=== PATIENT | male | born 1990 | race Caucasian/White ===

== ENCOUNTER 2021-08-03 09:00 | Outpatient (REF) | payer OTHER, SELFPAY ==
--- NOTE | ~2021-08-03 | XR_ITS ---
EXAMINATION: XR SACROILIAC JOINTS CLINICAL INFORMATION: Dorsalgia COMPARISON: None TECHNIQUE: 3 views of the sacroiliac joints FINDINGS: Sacroiliac joints are normal in appearance and symmetric. There is neither fracture nor dislocation nor appreciable degenerative changes of either hip. Visualized portions of the lower lumbar spine are unremarkable. XR/XR sacroiliac joint min 3V IMPRESSION: Normal sacroiliac joints.
[2021-08-03 10:30] LABS: MANUAL DIFF FLAG NO
[2021-08-03 11:27] LABS: Basophils Percent Auto 0.8 % (0-2); Eosinophils Absolute Auto 0.2 X10*3/uL (0.0-0.4); Eosinophils Percent Auto 3.9 % (0-4); Hematocrit 45.1 % (42.0-52.0); Hemoglobin 14.7 g/dl (14.0-18.0); Imm Gran Abs Auto 0.01 X10*3/uL (0.00-0.03); Imm Gran Pct Auto 0.2 % (0.0-0.4); Lymphocytes Absolute Auto 1.8 X10*3/uL (1.2-4.9); Lymphocytes Percent Auto 35.8 % (20-40); Mean Corpuscular HGB Conc 32.6 g/dl (31.0-36.0); Mean Corpuscular Hemoglobin 29.9 pg (27.0-33.0); Mean Corpuscular Volume 91.7 fL (80.0-98.0); Mean Platelet Volume 10.3 fL (9.4-12.4); Monocytes Absolute Auto 0.6 X10*3/uL (0.1-1.2); Monocytes Percent Auto 10.7 % (2-11); Neutrophils Absolute Auto 2.5 x10*3/uL (2.0-8.3); Neutrophils Percent Auto 48.6 % (45-73); Platelet Count 303 X10*3/uL (160-400); Red Blood Count 4.92 X10*6/uL (4.60-5.80); Red Cell Distribution Width 12.7 % (11.0-16.0); White Blood Count 5.1 X10*3/uL (4.8-10.8)
[2021-08-03 12:06] LABS: Alanine Aminotransferase 23 U/L (0-40); Albumin Level 4.9 g/dL (3.5-5.0); Alkaline Phosphatase 56 U/L (39-117); Anion Gap 10 (12-20); Aspartate Amino Transferase 22 U/L (5-37); Bilirubin Total 0.5 mg/dL (0.0-1.0); Blood Urea Nitrogen 6 mg/dL (9-16); C Reactive Protein 0.02 mg/dL (< or = 0.50); Calcium 10.3 mg/dL (8.4-10.2); Carbon Dioxide 31 mmol/L (22-29); Chloride 104 mmol/L (96-108); Estimated Glomerular Filt Rate > 60; Glucose Random 92 mg/dL (60-115); Potassium 4.8 mmol/L (3.3-5.1); Sodium 140 mmol/L (135-145); Total Protein 7.5 g/dL (6.5-8.0)
[2021-08-03 12:20] LABS: Erythrocyte Sedimentation Rate 1 MM/HR (0-15)
== END 2021-08-03 09:01 | disposition home or self-care (01) ==
LOC: HO.LAB 09:00
PROVIDERS: PCP Internal Medicine Endocrinology, Diabetes & Metabolism; Visit Provider Internal Medicine Rheumatology
DX: M25.50 Pain in unspecified joint (principal); M25.561 Pain in right knee; M25.562 Pain in left knee; M54.9 Dorsalgia, unspecified; Z15.89 Genetic susceptibility to other disease; Z79.1 Long term (current) use of non-steroidal anti-inflammatories (NSAID)
CPT/HCPCS: 36415; 72202; 80053; 85025; 85652; 86140; 99202

== ENCOUNTER → 2021-09-04 10:27 | Outpatient (BNVA) | payer OTHER, SELFPAY | PROVIDERS: PCP Podiatrist; Visit Provider Internal Medicine Rheumatology | DX: M54.9 Dorsalgia, unspecified (principal); M25.561 Pain in right knee; M25.562 Pain in left knee; M25.50 Pain in unspecified joint; M79.641 Pain in right hand; M79.642 Pain in left hand; Z15.89 Genetic susceptibility to other disease; Z79.1 Long term (current) use of non-steroidal anti-inflammatories (NSAID) | CPT/HCPCS: 99212 ==

== ENCOUNTER 2021-09-15 16:32 | Outpatient (REF) | payer OTHER, SELFPAY ==
--- NOTE | ~2021-09-15 | MR_ITS ---
EXAMINATION: MR PELVIS WITHOUT CONTRAST CLINICAL INFORMATION: Genetic susceptibility to other disease. Pain. COMPARISON: Previous sacroiliac joints x-ray July 2020 TECHNIQUE: Sagittal axial and coronal sequences through the pelvis without contrast FINDINGS: The sacroiliac joints are normal-appearing. No evidence of sacroiliitis is seen. Bone alignment is normal. No fracture or dislocation or bone lesion is seen. Bone marrow signal is seen. The hip joints are normal. Soft tissues are normal. MR/MR pelvis wo con IMPRESSION: Unremarkable examination.
== END 2021-09-15 16:33 | disposition home or self-care (01) ==
LOC: HO.MRI 16:32
PROVIDERS: Visit Provider Internal Medicine Rheumatology
DX: M54.9 Dorsalgia, unspecified (principal); M25.50 Pain in unspecified joint; Z15.89 Genetic susceptibility to other disease
CPT/HCPCS: 72195

== ENCOUNTER → 2021-10-10 08:53 | Outpatient (BNVA) | payer OTHER, SELFPAY | PROVIDERS: PCP Podiatrist; Visit Provider Internal Medicine Rheumatology | DX: M25.561 Pain in right knee (principal); M25.562 Pain in left knee; Z15.89 Genetic susceptibility to other disease; Z79.1 Long term (current) use of non-steroidal anti-inflammatories (NSAID) | CPT/HCPCS: 99212 ==

== ENCOUNTER 2023-07-09 09:23 | Outpatient (REF) | payer OTHER, SELFPAY ==
[2023-07-09 11:02] LABS: MANUAL DIFF FLAG NO
[2023-07-09 12:35] LABS: Basophils Absolute Auto 0.1 X10*3/uL (0.0-0.2); Basophils Percent Auto 0.7 % (0-2); Eosinophils Absolute Auto 0.1 X10*3/uL (0.0-0.4); Eosinophils Percent Auto 1.8 % (0-4); Hemoglobin 13.9 g/dl (14.0-18.0); Imm Gran Abs Auto 0.02 X10*3/uL (0.00-0.03); Imm Gran Pct Auto 0.3 % (0.0-0.4); Lymphocytes Absolute Auto 1.9 X10*3/uL (1.2-4.9); Mean Corpuscular HGB Conc 32.3 g/dl (31.0-36.0); Mean Corpuscular Hemoglobin 29.9 pg (27.0-33.0); Mean Corpuscular Volume 92.5 fL (80.0-98.0); Mean Platelet Volume 9.7 fL (9.4-12.4); Monocytes Absolute Auto 0.8 X10*3/uL (0.1-1.2); Monocytes Percent Auto 11.3 % (2-11); Neutrophils Absolute Auto 3.9 x10*3/uL (2.0-8.3); Neutrophils Percent Auto 57.9 % (45-73); Platelet Count 288 X10*3/uL (160-400); Red Blood Count 4.65 X10*6/uL (4.60-5.80); Red Cell Distribution Width 12.9 % (11.0-16.0); White Blood Count 6.8 X10*3/uL (4.8-10.8)
[2023-07-09 13:16] LABS: Alanine Aminotransferase 20 U/L (0-40); Albumin Level 4.5 g/dL (3.5-5.0); Alkaline Phosphatase 53 U/L (39-117); Anion Gap 12 (12-20); Aspartate Amino Transferase 15 U/L (5-37); Bilirubin Total 0.2 mg/dL (0.0-1.0); Blood Urea Nitrogen 9 mg/dL (9-16); Calcium 9.4 mg/dL (8.4-10.2); Carbon Dioxide 29 mmol/L (22-29); Chloride 104 mmol/L (96-108); Estimated Glomerular Filt Rate > 60; Glucose Random 90 mg/dL (60-115); Potassium 4.2 mmol/L (3.3-5.1); Sodium 141 mmol/L (135-145); Thyroid Stimulating Hormone 0.66 uIU/mL (0.32-4.0); Total Protein 7.2 g/dL (6.5-8.0)
== END 2023-07-09 09:24 | disposition home or self-care (01) ==
LOC: HO.LAB 09:23
PROVIDERS: PCP Podiatrist; Visit Provider Physician Assistant
DX: K59.09 Other constipation (principal); R11.0 Nausea; Z80.0 Family history of malignant neoplasm of digestive organs; Z80.7 Family history of other malignant neoplasms of lymphoid, hematopoietic and related tissues
CPT/HCPCS: 36415; 80053; 84443; 85025; 99202

== ENCOUNTER 2023-07-09 09:23 | Outpatient (AMB) | payer OTHER, SELFPAY ==
--- NOTE | 2023-07-09 09:26 | A.OFFVIS_ITS ---
Intake Vital Signs 07/09/23 09:28 Height 5 ft 9 in Weight 158 lb 11.725 oz BMI 23.4 BP 127/73 Blood Pressure Location Lt brachial Position Sitting Pulse 77 Intake Visit Reasons: Constipation Intake Note: Kurtis presents in the office as a new patient for constipation. CC: Constipation - discomfort and bloating in his abdomen. he will have a BM every 3 days. Market Risk Specialist Required: No Allergies No Known Allergies Allergy (Verified 07/09/23 09:28) Medication List - Last Reconciled 07/09/23 by Yolanda Vieira PA-C bupropion HCl 300 mg PO QAM dextroamphetamine-amphetamine 20 mg (Adderall) 20 mg PO BID HPI HPI Comments History of Present Illness Details A 32 y/o male referred with chronic constipation- on and off x 2 years-taking adderall 20 mg bid Was seen in urology- for noc urinating-he feels like he needs to have bm WHENEVER HE urinations He had a CT, cystoscopy- as well as PT for slow flow-had taken meds for enlarged prostate- that were dc'd. BM Q 3-4 days-he has tried stool softeners/ laxative- not much changed- intermittent rectal pain feels like spasms-nausea intermittently He wants a colonoscopy- his father just diagnosed with colon cancer- treated for lymphoma-also maternal grandmother colon cancer-he is very concerned given his symptoms, certainly understandable. 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 (nsaid) HCA B27 positive Polyarthralgia Back pain Surgical History S/P LASIK surgery Family History (Updated 07/09/23 @ 09:56 by Yolanda Vieira PA-C) Father Colon cancer Lymphoma Maternal Grandfather Colon cancer Social History Household Members Other:: lives alone Housing: House Are you a primary career development manager to a significant other at home: No Do you presently have visiting nurse or other home services: No 75 years or older and lives alone: No Alcohol intake: current Alcohol intake frequency: a few times a month Alcohol type: wine Patient Tobacco Use Status: Never used Tobacco e-Cigarette/Vaping Use: Never Used Substance Use Type: Marijuana service: Yes Current occupational status: employed Current occupation: IT Review of Systems Const All systems reviewed & are unremarkable except as noted in HPI and below Card Denies chest pain and Denies dyspnea Resp Denies dyspnea GI Denies abdominal pain, Reports change in stool character, Reports constipation, Reports nausea and Denies vomiting Reports urinary frequency Physical Exam Vital Signs: Last Vital Signs Pulse 77 07/09/23 09:28 BP 127/73 07/09/23 09:28 BMI result Body Mass Index 23.4 Const General: cooperative, healthy appearing, comfortable, no acute distress, alert and well groomed Orientation/consciousness: patient oriented x3 Limitations: no limitations Eyes Sclerae: sclerae normal Resp Effort & Inspection: normal respiratory effort and able to speak in complete sentences Auscultation: clear to auscultation bilaterally, no rales, no rhonchi and no wheezes Cardio Rate: regular rate Rhythm: regular rhythm Heart sounds: S1 normal heart sound present and S2 normal heart sound present GI Palpation (GI): Soft to palpation Auscultation: normal bowel sounds Skin Other: Multiply tattooed General skin exam: no rashes or lesions noted Neuro General: patient oriented x3 Extrem General: Yes full ROM Psych Appearance: grossly normal and well kempt Mental Status: mental status grossly normal Speech and movement: Normal speech and movement present Affect: normal affect Attitude: cooperative Thought process: Normal thought process present Thought content: Normal thought content present Insight: Good insight present (Psych) Judgement: Good judgement present (Psych) Results Reviewed Results Reviewed: MR/MR pelvis wo con IMPRESSION: Unremarkable examination. CT- 05/2023- No findings- Assessment & Plan Assessment & Plan (1) Chronic constipation: Code(s): K59.09 - Other constipation Plan: Consistent bowel Colonoscopy (2) Nausea: Comment: Difficult to assess Code(s): R11.0 - Nausea Plan: EGD (3) Family history of colon cancer in father: Code(s): Z80.0 - Family history of malignant neoplasm of digestive organs (4) Family history of lymphoma: Code(s): Z80.7 - Family history of other malignant neoplasms of lymphoid, hematopoietic and related tissues Plan: My risk genetic testing- If authorized by insurance will be progress- If insurance does not approve they called the patient and offer them-to process sample for a $250 fee Plan EGD/ colon- POON MG prep miralax x 1 week before Orders: Orders EGD/[place] Combo - GI Use Only Today K59.09 - Other constipation, R11.0 - Nausea, Z80.0 - Family history of malignant neoplasm of digestive organs, Z80.7 - Family history of other malignant neoplasms of lymphoid, hematopoietic and related tissues Complete Blood Count Auto Diff Today K59.09 - Other constipation, Z80.0 - Family history of malignant neoplasm of digestive organs, Z80.7 - Family history of other malignant neoplasms of lymphoid, hematopoietic and related tissues Comprehensive Met. Panel Today R11.0 - Nausea, Z80.0 - Family history of malignant neoplasm of digestive organs, Z80.7 - Family history of other malignant neoplasms of lymphoid, hematopoietic and related tissues Thyroid Stimulating Hormone Today R11.0 - Nausea, Z80.0 - Family history of malignant neoplasm of digestive organs, Z80.7 - Family history of other malignant neoplasms of lymphoid, hematopoietic and related tissues Medications: New polyethylene glycol 3350 (Miralax) Take as directed by mouth the day before your procedure. 238 grams PO ONCE 1 day PRN 238 grams 0RF laxative effect hydrocortisone acetate (Anusol-HC) 25 mg [place] BEDTIME PRN 24 ea 0RF hemorrhoids sennosides (senna) 8.6 mg PO DAILY 30 days 30 caps 3RF constipation docusate sodium (Colace) 200 mg (2 x 100 mg) PO BEDTIME 60 caps 5RF bisacodyl (Dulcolax (bisacodyl)) Day before procedure @ 12 noon Take 4 tablets by mouth followed by large glass of water 20 mg (4 x 5 mg) PO ONCE 1 day PRN 4 tabs 0RF colonoscopy prep Z12.11 - Encounter for screening for malignant neoplasm of colon polyethylene glycol 3350 (Miralax) 17 grams PO DAILY 30 days 510 grams 6RF bisacodyl (Dulcolax (bisacodyl)) 10 mg [place] DAILY PRN 20 ea 0RF constipation Patient Instructions: Very pleasant 32-year-old male family history of colon cancer, lymphoma presents with chronic constipation, nausea- Expresses anxiety given family history certainly understandable. He is done my risk genetic test in which we will submit. We discussed insurance constraints, will address that she would be any issue. He is agreeable with the plan He has made every effort at OT that have been unsuccessful He will begin bowel regimen Colace 200 mg as well as MiraLax q.h.s. senna daily He may use dulcolax suppositories as need He will give trial to Anusol suppositories-rectal pain Were scheduled him for EGD as well as colonoscopy- Discussed procedures, rare risks, need for escorted due to anesthesia Encouraged to call with questions or concerns Appreciate the opportunity assist care this patient Coding Level of Care Code New Pt Level 4 (05631) Diagnoses Chronic constipation K59.09 Nausea R11.0 Family history of colon cancer in father Z80.0 Family history of lymphoma Z80.7 Time Spent (min) 45
[2023-07-09 09:28] VITALS: BP 127/73; PULSE 77; BMI 23.4
== END 2023-07-09 10:51 | disposition home or self-care (01) ==
PROVIDERS: PCP Podiatrist; Referring Provider Podiatrist; Visit Provider Physician Assistant
DX: K59.09 Other constipation (principal); R11.0 Nausea; Z80.0 Family history of malignant neoplasm of digestive organs; Z80.7 Family history of other malignant neoplasms of lymphoid, hematopoietic and related tissues
CPT/HCPCS: 99204

== ENCOUNTER 2023-10-30 10:12 | Day surgery (SDC) | payer OTHER, SELFPAY ==
--- NOTE | 2023-10-29 11:54 | HO.ANESPROP2 ---
HPI - Anesthesia Eval Consult details Narrative: 33yo M for Upper Endoscopy and Colonoscopy [facility] Active Problems Active Problems: All Active Problems Family history of lymphoma (Acute) Family history of colon cancer in father (Acute) Nausea (Acute) Chronic constipation (Acute) Bilateral hand pain (Acute) HLA B27 (HLA B27 positive) (Acute) Knee pain, bilateral (Acute) [facility] (current) use of non-steroidal anti-inflammatories (nsaid) (Acute) Polyarthralgia (Acute) Back pain (Acute) Past Medical History Medical History Ankylosing spondylitis of site in spine Bilateral hand pain HLA B27 (HLA B27 positive) Knee pain, 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 (nsaid) HCA B27 positive Polyarthralgia Back pain Family History Family History Father Colon cancer Lymphoma Maternal Grandfather Colon cancer Surgical History Surgical History H/O circumcision S/P LASIK surgery Social History Social History Household Members Other:: lives alone Housing: House Are you a primary manager wound care to a significant other at home: No Do you presently have visiting nurse or other home services: No 75 years or older and lives alone: No Alcohol intake: current Alcohol intake frequency: a few times a month Alcohol type: wine Patient Tobacco Use Status: Never used Tobacco e-Cigarette/Vaping Use: Never Used Substance Use Type: Marijuana service: Yes Current occupational status: employed Current occupation: IT Meds Allergies Allergy/AdvReac Type Severity Reaction Status Date / Time No Known Allergies Allergy Verified 10/30/23 12:47 Home Medications ?Medication ?Instructions ?Recorded ?Confirmed ?Last Taken ?Type bupropion HCl 300 mg 24 hr tablet, 300 mg PO QAM 07/09/23 07/09/23 Unknown History extended release dextroamphetamine-amphetamine 20 20 mg PO BID 07/09/23 07/09/23 10/30/23 07:00 History mg tablet (Adderall) Exam Pertinent Lab Results Pertinent Lab Results: Laboratory Tests 07/09/23 11:01 WBC 6.8 Hgb 13.9 L Hct 43.0 Plt Count 288 Sodium 141 Potassium 4.2 Chloride 104 Carbon Dioxide 29 BUN 9 Creatinine 0.91 Assessment and Plan Assessment Anesthesia Assessment: Chart Reviewed
[2023-10-30 12:49] VITALS: BMI 21.1
--- NOTE | 2023-10-30 12:53 | P.HPSUR_ITS ---
Pre-Procedural Eval Section A - 24 Hr Update-Section A only Date of Service: 10/30/23 Section B - Complete if H&P > 30 days Chief Complaint: Family history of other malignant neoplasms of lym Relevant Family History (Specify if Yes): Yes Relevant Social History: Other (specify) (THC use) Present Medications: see Short Stay Collaborative assessment Medical History: Significant History (Bilateral hand pain HLA B27 (HLA B27 positive) Knee pain, bilateral detention (current) use of non-steroidal anti- inflammatories (nsaid) HCA B27 positive Polyarthralgia Back pain) History of Previous Operations: Relevant previous surgery/procedure and date(s) (S/P LASIK surgery) Allergies: Allergies Allergy/AdvReac Type Severity Reaction Status Date / Time No Known Allergies Allergy Verified 10/30/23 12:47 Review of Systems Sugical H&P ROS: Negative: Constitution, Cardiovascular, Respiratory, Neurological, Psychiatric, Hem-Onc, Allergic/Immunologic, Gastrointestinal, Genitourinary, Musculoskeletal, Integumentary, Endocrine and Eyes/Ears/Nose/Throat Exam Surgical H&P Exam: Normal: HEENT, Normal: Heart, Normal: Lungs, Normal: Extremities, Normal: Abdomen, Normal: Skin and Normal: Neurological Plan Diagnosis/Plan: Unchanged I have reviewed the history and physical and performed a pertinent physical examination on my patient. No changes have occurred unless specified. Time Spent With Patient Time: Total time managing care of this patient today ____ minutes.
[2023-10-30 13:07] VITALS: BP 112/70; PULSE 56; RESP 15; TEMP 36.6; O2SAT 100
[2023-10-30] MEDS: Lactated Ringers 1,000 ML 100 ML IVCONT (13:12)
--- NOTE | 2023-10-30 13:15 | HO.ANESPROP2 ---
[facility] Active Problems Active Problems: All Active Problems Family history of lymphoma (Acute) Family history of colon cancer in father (Acute) Nausea (Acute) Chronic constipation (Acute) Bilateral hand pain (Acute) HLA B27 (HLA B27 positive) (Acute) Knee pain, bilateral (Acute) shelter (current) use of non-steroidal anti-inflammatories (nsaid) (Acute) Polyarthralgia (Acute) Back pain (Acute) Past Medical History Medical History Ankylosing spondylitis of site in spine Bilateral hand pain HLA B27 (HLA B27 positive) Knee pain, bilateral shelter (current) use of non-steroidal anti-inflammatories (nsaid) HCA B27 positive Polyarthralgia Back pain Functional capacity: independent ambulation Family History Family History Father Colon cancer Lymphoma Maternal Grandfather Colon cancer Family history of problems with anesthesia: No Surgical History Surgical History H/O circumcision S/P LASIK surgery Social History Social History Household Members Other:: lives alone Housing: House Are you a primary pediatric critical care nurse to a significant other at home: No Do you presently have visiting nurse or other home services: No Alcohol intake: current Alcohol intake frequency: a few times a month Alcohol type: wine Patient Tobacco Use Status: Never used Tobacco e-Cigarette/Vaping Use: Never Used Use of substances other than those prescribed or required for medical reasons: Yes Substance Use Type: Marijuana Substance Use Type Other:: vaped Substance Use Frequency: Daily Are you DNR?: No Advance Directives: No Advance Directives Information Provided: Yes service: Yes Current occupational status: employed Current occupation: IT Meds Allergies Allergy/AdvReac Type Severity Reaction Status Date / Time No Known Allergies Allergy Verified 10/30/23 12:47 Active Medications: Current Medications Lactated Ringer's (Lr) 1,000 mls @ 100 mls/hr IVCONT .Q10H LISA Last Admin: 10/30/23 13:12 Dose: 100 mls/hr Home Medications ?Medication ?Instructions ?Recorded ?Confirmed ?Last Taken ?Type bupropion HCl 300 mg 24 hr tablet, 300 mg PO QAM 07/09/23 07/09/23 Unknown History extended release dextroamphetamine-amphetamine 20 20 mg PO BID 07/09/23 07/09/23 10/30/23 07:00 History mg tablet (Adderall) Exam Height,Weight and Vital Signs: Height 5 ft 9 in Weight 64.864 kg Last Vital Signs Temp 97.8 F 10/30/23 13:07 Pulse 56 10/30/23 13:07 Resp 15 10/30/23 13:07 BP 112/70 10/30/23 13:07 Pulse Ox 100 10/30/23 13:07 O2 Del Method Room Air 10/30/23 13:07 Airway Mallampati Class: II TM Dist: >3cm Neck ROM: Full Heart: RRR Lungs: CTA Assessment and Plan Assessment Anesthesia Assessment: Anesthesia Plan Discussed Final Anesthetic Review Family History of Problems with Anesthesia: No NPO: Yes ASA Class: II and III Final Preanesthetic Review: Meds/Allgs Chart Reviewed, Consent Obtained/Reviewed and Anes Risks/Benef Reviewed Patient Risk: Low Procedure Risk: Low Anesthetic Plan Anesthetic Plan: MAC: Disposition: Standard PACU
--- NOTE | 2023-10-30 13:34 | P.OPN-COLO_ITS ---
Colonoscopy Operative Note Operative Note Date of Service: 10/30/23 Narrative: Operative Information Procedure Description: EGD, Colonoscopy Indication: FH of colon cancer, screening Anesthesia: MAC FLEXIBLE TRANSORAL UPPER GASTROINTESTINAL ENDOSCOPY AND COLONOSCOPY PROCEDURE NOTE UPPER ENDOSCOPY Consent: Indications for the procedure and potential complications of bleeding, perforation, reaction to medications and missed diagnosis were discussed with the patient and informed consent was obtained. Instrument: Olympus GIF H 190 J mid size upper endoscope Monitoring: Vital signs and clinical assessment, continuous EKG monitoring, Pulse oximetry, Carbon Dioxide monitoring and blood pressure monitoring were done throughout the procedure. Procedure: The patient was placed in the left lateral decubitis position and pre-procedure medications were administered and a bite block was placed. The endoscope was inserted into the mouth and advanced under direct vision to the third part of duodenum. A careful inspection was made as the upper endoscope was withdrawn including a retroflexed examination of the proximal stomach; Findings and interventions are described below. Findings: Larynx:normal Esophagus: GE junction at 42 cm, diaphragm hiatus at 42 cm, normal mucosa Stomach: Normal mucosa. Grade 2 flap valve on retroflexed examination of the cardia. Duodenum: Normal bulb and descending duodenum, ERCP scope used to look at papilla and was normal Intervention: none COLONOSCOPY Instrument: Olympus variable stiffness pediatric scope 190L Colonoscopy Monitoring: Vital signs and clinical assessment, continuous EKG monitoring, Pulse oximetry, Carbon Dioxide monitoring and blood pressure monitoring were done throughout the procedure. Colon withdrawal time was 7 minutes. Procedure: The patient was placed in the left lateral decubitis position and pre-procedure medications were administered. After a digital rectal examination of the ano-rectum, the video colonoscope was inserted into the rectum and advanced through the colon to the cecum/TI. The colonoscope was slowly withdrawn in a retrograde panoramic fashion and the colon mucosa was carefully examined including a retroflexed view of the rectum. Findings and interventions are described below. Procedure Difficulty: easy Findings: Terminal Ileum-normal Cecum:normal Ascending Colon: normal Transverse Colon -normal Descending Colon:normal Sigmoid Colon: normal Rectum: Retroflexion with small internal hemorrhoids, grade I Anorectum - normal Colon preparation: [place] Bowel Preparation Scale Right colon; 2 Transverse colon: 3 Left colon; 3 (0 = Unprepared colon segment with mucosa not seen due to solid stool that cannot be cleared. 1 = Portion of mucosa of the colon segment seen, but other areas of the colon segment not well seen due to staining, residual stool and/or opaque liquid. 2 = Minor amount of residual staining, small fragments of stool and/or opaque liquid, but mucosa of colon segment seen well. 3 = Entire mucosa of colon segment seen well with no residual staining, small fragments of stool or opaque liquid) Impression and Post Procedure Diagnosis: Endoscopy Findings: normal Colonoscopy Findings: normal Plan: Await Pathology results Repeat Colonoscopy in 5 years due to FH of CRC or earlier if clinically indicated High fiber diet leaflet avoid straining at stool, epsom salts and sitz bath, anusol supps or cream Above findings were reviewed with the patient and relevant handouts were provided if indicated.
--- NOTE | 2023-10-30 13:35 | P.CONAN_ITS ---
[facility] Active Problems Active Problems: All Active Problems Family history of lymphoma (Acute) Family history of colon cancer in father (Acute) Nausea (Acute) Chronic constipation (Acute) Bilateral hand pain (Acute) HLA B27 (HLA B27 positive) (Acute) Knee pain, bilateral (Acute) longterm (current) use of non-steroidal anti-inflammatories (nsaid) (Acute) Polyarthralgia (Acute) Back pain (Acute) Past Medical History Medical History Ankylosing spondylitis of site in spine Bilateral hand pain HLA B27 (HLA B27 positive) Knee pain, bilateral longterm (current) use of non-steroidal anti-inflammatories (nsaid) HCA B27 positive Polyarthralgia Back pain Functional capacity: independent ambulation Family History Family History Father Colon cancer Lymphoma Maternal Grandfather Colon cancer Family history of problems with anesthesia: No Surgical History Surgical History H/O circumcision S/P LASIK surgery Social History Social History Household Members Other:: lives alone Housing: House Are you a primary ostomy care nurse to a significant other at home: No Do you presently have visiting nurse or other home services: No Alcohol intake: current Alcohol intake frequency: a few times a month Alcohol type: wine Patient Tobacco Use Status: Never used Tobacco e-Cigarette/Vaping Use: Never Used Use of substances other than those prescribed or required for medical reasons: Yes Substance Use Type: Marijuana Substance Use Type Other:: vaped Substance Use Frequency: Daily Are you DNR?: No Advance Directives: No Advance Directives Information Provided: Yes service: Yes Current occupational status: employed Current occupation: IT Meds Allergies Allergy/AdvReac Type Severity Reaction Status Date / Time No Known Allergies Allergy Verified 10/30/23 12:47 Active Medications: Current Medications Lactated Ringer's (Lr) 1,000 mls @ 100 mls/hr IVCONT .Q10H LISA Last Admin: 10/30/23 13:12 Dose: 100 mls/hr Home Medications ?Medication ?Instructions ?Recorded ?Confirmed ?Last Taken ?Type bupropion HCl 300 mg 24 hr tablet, 300 mg PO QAM 07/09/23 07/09/23 Unknown History extended release dextroamphetamine-amphetamine 20 20 mg PO BID 07/09/23 07/09/23 10/30/23 07:00 History mg tablet (Adderall) Exam Height,Weight and Vital Signs: Height 5 ft 9 in Weight 64.864 kg Last Vital Signs Temp 97.8 F 10/30/23 13:07 Pulse 56 10/30/23 13:07 Resp 15 10/30/23 13:07 BP 112/70 10/30/23 13:07 Pulse Ox 100 10/30/23 13:07 O2 Del Method Room Air 10/30/23 13:07 Airway Mallampati Class: II TM Dist: >3cm Neck ROM: Full Heart: RRR Lungs: CTA Assessment and Plan Final Anesthetic Review Family History of Problems with Anesthesia: No NPO: Yes ASA Class: II Final Preanesthetic Review: Meds/Allgs Chart Reviewed, Consent Obtained/Reviewed and Anes Risks/Benef Reviewed Patient Risk: Low Procedure Risk: Low Anesthetic Plan Anesthetic Plan: MAC: Disposition: Standard PACU
[2023-10-30 14:10] VITALS: BP 90/42; PULSE 61; RESP 16; TEMP 36.4; O2SAT 98
--- NOTE | 2023-10-30 14:13 | HO.POSTANES ---
Post Anesthesia Evaluation Post Anesthesia Evaluation Date of Service: 10/30/23 Vital Signs: Vital Signs Temp Pulse Resp BP Pulse Ox O2 Del Method 10/30/23 13:07 97.8 F 56 15 112/70 100 Room Air Anesthesia: Monitored Mental Status: Awake Pain Control: Satisfactory Nausea/Vomiting: None Hydration: Adequate Anesthesia-Related Issues: No Anes. Related Issues
[2023-10-30 14:25] VITALS: BP 109/68; PULSE 63; RESP 16; O2SAT 100
[2023-10-30 14:44] VITALS: TEMP 36.6
== END 2023-10-30 15:22 | disposition home or self-care (01) ==
PROVIDERS: PCP Nurse Practitioner Family; Visit Provider Internal Medicine Gastroenterology
PROC: (CPT 45378; principal; 2023-10-30 13:30)
DX: Z12.11 Encounter for screening for malignant neoplasm of colon (principal); Z80.0 Family history of malignant neoplasm of digestive organs; K64.0 First degree hemorrhoids; K59.09 Other constipation; Z80.7 Family history of other malignant neoplasms of lymphoid, hematopoietic and related tissues; K44.9 Diaphragmatic hernia without obstruction or gangrene; M13.0 Polyarthritis, unspecified; Z79.1 Long term (current) use of non-steroidal anti-inflammatories (NSAID); Z79.899 Other long term (current) drug therapy
CPT/HCPCS: 45378; 43235; J2704

== ENCOUNTER → 2023-10-30 10:12 | Outpatient (BNV) | payer OTHER, SELFPAY | PROVIDERS: PCP Nurse Practitioner Family; Visit Provider Internal Medicine Gastroenterology | DX: Z12.11 Encounter for screening for malignant neoplasm of colon (principal); Z80.0 Family history of malignant neoplasm of digestive organs; K64.0 First degree hemorrhoids; R14.0 Abdominal distension (gaseous); R11.0 Nausea | CPT/HCPCS: 43235; 45378 ==